=== PATIENT | male | born 1945 | race Caucasian/White ===

== ENCOUNTER 2023-07-24 05:11 | Observation (INO) ==
--- NOTE | 2023-06-12 14:02 | PAT Medication Instructions ---
Medication Instructions Date of Service June 12, 2023 Home Medications Medication Instructions Recorded latanoprost 0.005 % eye drops 1 drp ophthalmic (eye) DAILY 01/07/21 glaucoma #7.5 mL blood sugar diagnostic (OneTouch #100 ea 01/13/22 Verio test strips) lancets 33 gauge (MilagrosTouch Urvashi #100 ea 01/13/22 Lancets) blood-glucose meter #1 ea 02/07/22 pravastatin 40 mg tablet 40 mg PO HS #90 tabs 10/20/22 lisinopril 10 mg tablet 10 mg PO HS #90 tabs 03/21/23 mecobalamin (vitamin B12) 1,000 1,000 mcg PO DAILY #90 tabs 06/08/23 mcg chewable tablet cholecalciferol (vitamin D3) 25 mcg (1,000 unit) tablet (Vitamin D3) 25 mcg PO HS latanoprost 0.005 % eye drops 1 drp ophthalmic (eye) DAILY glaucoma aspirin 81 mg tablet,delayed release 81 mg PO HS pravastatin 40 mg tablet 40 mg PO HS lisinopril 10 mg tablet 10 mg PO HS mecobalamin (vitamin B12) 1,000 mcg chewable tablet 1,000 mcg PO DAILY metoprolol succinate 25 mg tablet,extended release 24 hr 25 mg PO QPM Continue as directed latanoprost 0.005 % eye drops 1 drp ophthalmic (eye) DAILY glaucoma DO NOT take the morning of surgery mecobalamin (vitamin B12) 1,000 mcg chewable tablet 1,000 mcg PO DAILY Take evening before surgery cholecalciferol (vitamin D3) 25 mcg (1,000 unit) tablet (Vitamin D3) 25 mcg PO HS aspirin 81 mg tablet,delayed release 81 mg PO HS (continue as normal unless told otherwise by surgeon) pravastatin 40 mg tablet 40 mg PO HS lisinopril 10 mg tablet 10 mg PO HS metoprolol succinate 25 mg tablet,extended release 24 hr 25 mg PO QPM Other Notes If you have any questions please call us at [phone] or [phone] or [phone] or [phone]
--- NOTE | 2023-06-20 10:46 | Anesthesiology Consultation ---
Date of Service June 20, 2023 Assessment & Plan (1) Encounter for pre-operative examination: Chart Review Chart Review: Acceptable Risk for Surgery (pending cardio clearance ) and Patient seen in Pre Admission Testing - Awaiting cardio clearance 07/07/23 ([place]) - Check BSG AM DOS - Pt is NOT an OPJ candidate Per PAT appt on 06/20/23, no recent illness/disease exposures, illness related symptoms, or recent illness/disease positive tests. Will leave to surgeon's discretion if preop Covid testing needed Patient seen by PCP 06/08/23= seen for medical follow up. Hypertensionwell- controlled on lisinopril. Echocardiogram August 2020 mild/borderline aortic root dilation but no other abnormality. Left hip surgical intervention scheduled 07/24/2023. Preop testing being done 06/20/2023. Given history of nonsustained ventricular tachycardiacardiology clearance. Medically stable to proceed with surgical intervention as planned pending cardiology evaluation. Prediabetesmost recent A1c 6.8. Transition to diabetes mellitus but given patient's advanced age treatment has not required since A1c slightly above 6.5. Peripheral neuropathy. Mild BPH. Glaucoma. Right ankle open peroneal tendon repair 06/23/2020 = done under [facility] with LMA #5. Atraumatic x1 attempt. Teaching & Discussion Pre-Anesthesia Teaching/Discussion Notes: Instructed NPO after midnight before surgery,except medications with 15 cc of water. Medication instructions prov ided according to the PAT guidelines. History Surgery Operation Date: 07/24/23 09:10 Proposed Procedures p Left Anterior Total Hip Arthroplasty - Prasanna Feliciano, DO Height/Weight Height: 5 ft 9 in Weight: 97.7 kg Allergies Allergy/AdvReac Type Severity Reaction Status Date / Time iodine Allergy Mild tingling/itching Verified 06/09/23 11:46 sensation Medications Home Medications Medication Instructions Recorded Confirmed Last Taken cholecalciferol (vitamin D3) 25 25 mcg PO HS 06/03/20 06/09/23 03/14/22 mcg (1,000 unit) tablet (Vitamin D3) latanoprost 0.005 % eye drops 1 drp ophthalmic (eye) DAILY 01/07/21 06/09/23 03/15/22 glaucoma #7.5 mL aspirin 81 mg tablet,delayed 81 mg PO HS 02/23/21 06/09/23 03/14/22 release blood sugar diagnostic (Milestone AV TechnologiesTouch #100 ea 01/13/22 01/31/23 02/23/22 Verio test strips) lancets 33 gauge (OneTouch Delica #100 ea 01/13/22 01/31/23 02/23/22 Lancets) blood-glucose meter #1 ea 02/07/22 01/31/23 02/23/22 pravastatin 40 mg tablet 40 mg PO HS #90 tabs 10/20/22 06/09/23 Unknown lisinopril 10 mg tablet 10 mg PO HS #90 tabs 03/21/23 06/09/23 Unknown mecobalamin (vitamin B12) 1,000 1,000 mcg PO DAILY #90 tabs 06/08/23 06/09/23 Unknown mcg chewable tablet metoprolol succinate 25 mg 25 mg PO QPM 06/09/23 06/09/23 Unknown tablet,extended release 24 hr Past Medical History Medical History Aortic root enlargement Mild aortic root dilation per 2020 ECHO Mildly dilated ascending aorta as well per 2020 ECHO Arthritis BPH (benign prostatic hyperplasia) Glaucoma Follows routinely with eye doctor History of COVID-19 12/2021, pcr [place] (mandatory test [place] go on [place]), "bad cold and fever for 3-4 days" > resolved. HTN (hypertension) Hyperlipidemia Peripheral neuropathy Mild to bilateral feet Prediabetes Hgb A1C 6.8 on 05/26/23 - diabetic range Diet controlled Exercise / Class Metabolic Activity II 4-5 Yardwork/Stairs/Walk up hill (one flight of stairs - no chest pain or SOB ) Past Family History Family History Mother Breast cancer Colorectal cancer Father Myocardial infarction Other COPD (chronic obstructive pulmonary disease) Stroke Denies family history of Ovarian cancer Prostate cancer Past Surgical History Surgical History History of arthroscopy RT/LEFT KNEE History of cataract surgery History of colonoscopy History of tooth extraction S/P foot surgery, right tendon repair 06/2020 Past Anesthesia History No Hx of Anesthesia Complications and No Family Hx of Anesthesia Complications History of PONV No Hx of PONV and No Hx of Motion Sickness Social History Smoking Status: Never smoker Do You Dip or Chew Tobacco: No Hx Alcohol Use: Yes Alcohol type: beer alcohol intake frequency: a few times a week Hx Substance Use: No substance use type: does not use Review of Systems Patient denies chest pain, shortness of breath, dyspnea on exertion, reflux, cough, wheezing, palpitations. No hx of seizures, stroke, RI, apnea/snoring. No hx of blood clots or blood transfusions Physical Exam Vital Signs VITALS BP 124/83 P 81 TEMP 98.1 SP02 95% RESP 16 Constitutional no acute distress ENMT Mouth: no TMJ clicking Thyromental Distance: > or= 3.5 Finger Breadths (4.0) Mallampati Class: III Neck + limited neck extension Respiratory normal respiratory effort; no respiratory distress Auscultation: lungs clear to auscultation bilaterally; no wheezes Cardiovascular Rate/Rhythm: regular rate and regular rhythm Heart Sounds: no murmur Vessels: no carotid bruit Musculoskeletal Spine: no pain with cervical ROM Extremities: extremities normal to inspection Psychiatric Orientation: alert Lab Results Anesthesia Preop Results Results Anesthesia Widget: WBC 5.83 K/ul (4.8-10.8) 06/20/23 Hgb 15.1 g/dl (14.0-18.0) 06/20/23 Hct 43.4 % (42.0-52.0) 06/20/23 Plt 210 K/uL (130-400) 06/20/23 Na 136 mmol/L (136-145) 05/26/23 K 4.0 mmol/L (3.5-5.1) 05/26/23 Cl 103 mmol/L (98-107) 05/26/23 CO2 27 mmol/L (21-32) 05/26/23 BUN 19 mg/dl (6-23) 05/26/23 Creat 0.88 mg/dl (0.6-1.4) 05/26/23 Glucose Level 135 mg/dl (70-99(Fasting)) H 05/26/23 PT 10.6 Seconds (9.0-12.0) 06/20/23 PTT 27.8 Seconds (21.0-31.0) 06/20/23 INR 1.0 (0.9-1.1) 06/20/23 HA1c 6.8 % (4.5-5.6) H 05/26/23 Blood Type O Positive 06/20/23 Antibody Screen NEGATIVE 06/20/23 Testing Laboratory Results 05/26/23= HGB A1C: 6.8 Electrocardiogram Date: 06/08/23 Findings: + NSR @ (87bpm ) Left axis deviation Chest X-Ray Date: 06/20/23 Findings: + NAD Echocardiogram Date: 09/08/20 EF: 55-60% LV Function: normal RWMA: + none Other Findings: + LVH (mild/concentric ) Valvular Disease: + no significant valvular disease Mildly dilated aortic root. Mildly dilated ascending aorta
--- NOTE | 2023-07-20 15:45 | History & Physical Report ---
Date of Service July 20, 2023 Assessment & Plan (1) Hip arthritis: We will proceed with a left anterior total of arthroplasty. Postoperatively he will be started on aspirin for DVT prophylaxis and kept overnight in the hospital for postop medical management. [facility] discharge. History of Present Illness Chief Complaint: Osteoarthritis of the left hip. 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 He recently moved to the area. He has been dealing with chronic increasing left hip and groin pain. 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 He has had an injection of his hip, which gave him complete relief until it is worn off. After failing conservative treatment, he has elected to proceed with a left anterior total of arthroplasty. Allergies Allergy/AdvReac Type Severity Reaction Status Date / Time iodine Allergy Mild tingling/itching Verified 07/07/23 08:39 sensation Home Medications Medication Instructions Recorded Confirmed Type cholecalciferol (vitamin D3) 25 25 mcg PO HS 06/03/20 07/07/23 History mcg (1,000 unit) tablet (Vitamin D3) latanoprost 0.005 % eye drops 1 drp ophthalmic (eye) DAILY 01/07/21 07/07/23 Rx glaucoma #7.5 mL aspirin 81 mg tablet,delayed 81 mg PO HS 02/23/21 07/07/23 History release blood-glucose meter #1 ea 02/07/22 01/31/23 Rx pravastatin 40 mg tablet 40 mg PO HS #90 tabs 10/20/22 07/07/23 Rx lisinopril 10 mg tablet 10 mg PO HS #90 tabs 03/21/23 07/07/23 Rx mecobalamin (vitamin B12) 1,000 1,000 mcg PO DAILY #90 tabs 06/08/23 07/07/23 Rx mcg chewable tablet metoprolol succinate 25 mg 25 mg PO QPM 06/09/23 07/07/23 History tablet,extended release 24 hr blood sugar diagnostic (OneTouch #100 ea 06/21/23 Rx Verio test strips) lancets 33 gauge #100 ea 06/21/23 Rx Past Med/Surg History Medical History Peripheral neuropathy Glaucoma Follows routinely with eye doctor Aortic root enlargement Mild aortic root dilation per 2020 ECHO Mildly dilated ascending aorta as well per 2020 ECHO BPH (benign prostatic hyperplasia) History of COVID-19 12/2021, pcr [place]mand[place] go [place]), "bad cold and fever for 3-4 days" > resolved. Arthritis Prediabetes Hgb A1C 6.8 on 05/26/23 - diabetic range Diet controlled Peripheral neuropathy Mild to bilateral feet Hyperlipidemia HTN (hypertension) Surgical History History of cataract surgery S/P foot surgery, right tendon repair 06/2020 History of arthroscopy RT/LEFT KNEE History of colonoscopy History of tooth extraction Family History Mother Breast cancer Colorectal cancer Father Myocardial infarction Other COPD (chronic obstructive pulmonary disease) Stroke Denies family history of Ovarian cancer Prostate cancer Social History Smoking Status: Never smoker Second Hand Exposure: No; Do You Dip or Chew Tobacco: No; Hx Alcohol Use: Yes Alcohol type: beer Hx Substance Use: No Preferred Language: Korean Communication Ability: Effective Engineering Professor Required: No Beliefs That Will Affect Care: None marital status: Current Living Situation: Spouse current occupational status: retired 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 Physical Exam Physical examination left hip, he has decreased range of motion. He has pain with internal/external rotation. Most of his pain is located in the groin.. Constitutional WD/WN, vitals as above Eyes PERRL, conjunctivae normal, anicteric sclerae ENMT external ear and nose normal, oropharynx normal Neck trachea midline, no thyromegaly Respiratory normal respiratory effort Cardiovascular RRR, no murmur, no edema Gastrointestinal (Abdomen) normal bowel sounds, soft, nontender, no hepatosplenomegaly Psychiatric A+Ox3, euthymic affect Results & Data Results & Data Laboratory Results . Diagnostic Findings X-rays of the left hip show advanced osteoarthritis with joint space narrowing, osteophyte formation, and [id number] articulation. PG Care Time/CCT Total # of Minutes Spent Total Time Spent with Patient: Total time spent is greater than 50% in coordination of care (as documented) at patient's floor/unit and/or counseling patient: Coding Level of Care Code None Diagnoses Hip arthritis M16.10
[2023-07-24] MEDS ORDERED: TRANEXAMIC ACID 1,000 MG **IV Intra-op IV SCH (06:00)
[2023-07-24] MEDS ORDERED: ceFAZolin 2000MG 2,000 MG/15 ML SYR IV SCH (06:00)
[2023-07-24] MEDS ORDERED: FAMOTIDINE 20 MG TAB PO SCH (06:00)
[2023-07-24] MEDS ORDERED: dexAMETHasone 4 MG TAB PO SCH (06:00)
[2023-07-24] MEDS ORDERED: TRANEXAMIC ACID 1,000 MG **IV Pre-op IV SCH (06:00)
[2023-07-24] MEDS ORDERED: LR 60ML/HR IV SCH (06:00)
[2023-07-24] MEDS ORDERED: ACETAMINOPHEN 500 MG TAB PO SCH (06:00)
[2023-07-24] MEDS ORDERED: ORTHO JOINT MIX INFIL SCH (06:00)
[2023-07-24] MEDS ORDERED: LR 500ML BOLUS, THEN 15ML/HR IV SCH (06:00)
[2023-07-24] MEDS ORDERED: GABAPENTIN 300 MG CAP PO SCH (06:00)
[2023-07-24] MEDS ORDERED: BUPIVACAINE 0.5 % 5 MG/1 ML PF 10ML VIAL ONE (06:16)
--- NOTE | 2023-07-24 06:27 | History & Physical Bridge Note ---
Date of Service July 24, 2023 History & Physical Bridge Note I have examined the patient, reviewed the History & Physical and in the interval since the performance of the History & Physical I have noted the following changes of clinical significance: no changes noted
[2023-07-24] MEDS ORDERED: ORTHO JOINT ANESTHETIC ONE (06:34)
[2023-07-24] MEDS ORDERED: fentaNYL citrate PF 100 MCG/2 ML VIAL ONE (06:37)
[2023-07-24] MEDS ORDERED: MIDAZOLAM HCL 1 MG/ML 2ML VIAL ONE (06:37)
[2023-07-24] MEDS ORDERED: ePHEDrine sulfate 50 MG/ML AMP IV PRN (06:41)
[2023-07-24] MEDS ORDERED: fentaNYL citrate PF 100 MCG/2 ML VIAL IV PRN (06:41)
[2023-07-24] MEDS ORDERED: ONDANSETRON INJ 2 MG/ML 2 ML VIAL IV PRN ×2 (06:41→09:53)
[2023-07-24] MEDS ORDERED: ATROPINE SULFATE 0.1 MG/ML 10ML SYR IV PRN (06:41)
[2023-07-24] MEDS ORDERED: ePHEDrine sulfate 50 MG/5 ML SYR ONE (07:26)
[2023-07-24] MEDS ORDERED: GLYCOPYRROLATE 0.2 MG/ML VIAL ONE (07:26)
[2023-07-24] MEDS ORDERED: PHENYLEPHRINE 100MCG/ML 10ML SYR IV ONE (07:26)
--- NOTE | 2023-07-24 08:06 | Operative Report ---
PG Post Operative Report Pre & Post Diagnosis Operation Date: 07/24/23 07:00 Pre-Op Diagnosis: Left Hip Degenerative Joint Disease Post-Op Diagnosis: Left Hip Degenerative Joint Disease I identified the patient and participated in the time-out.: Yes Procedure Operation Date: 07/24/23 07:00 Actual Procedures p Left Anterior Total Hip Arthroplasty, Uncemented(Left) - Prasanna Feliciano DO Surgeon Prasanna Feliciano DO Semiconductor Assembler Prasanna Ruiz PA-C Estimated Blood Loss 200 Findings Consistent with Post-Op Diagnosis Specimens Left humeral head Description of Procedure Implants used I used a ZimmerBiomet total hip arthroplasty system with a size 4 high offset Avenir Complete stem, a 52 mm G7 cup with a 25mm screw, an E1 polyethylene liner, a 36 mm ceramic head with a +0 neck. Wolf arrived at the hospital for the above procedure. He was seen in the preoperative holding area and the operative extremity was identified and signed. He was given a spinal anesthetic, a preoperative antibiotic, and TXA. He was then taken back to the operating room and laid on the table in the supine position. He was given basic sedation. The operative leg was secured to a Puristst leg positioner. The hip was then prepped and draped in sterile fashion. A timeout was done and the patient and the operative extremity was properly identified. An anterior approach was used. Dissection was taken down through the fascia and the tensor muscle belly was retracted laterally and the rectus was retracted medially. The circumflex vessels were identified and ligated. The capsule was then incised and tagged for later repair. The femoral neck was then cut and the femoral head was removed. The acetabulum was exposed. Time was spent doing a complete circumferential labral release. Sequential reaming of the acetabulum up to a size 51 reamer was done. Final reamings were done under fluoroscopy to ensure appropriate version. A Biomet 52 mm G7 cup was then impacted into place. A single 25 mm screw was placed. The E1 polyethylene liner was then snapped into place. Surrounding soft tissues were then injected with 100 cc of an orthopedic pain control cocktail. The proximal femur was then exposed. Sequential broaching up to a size 4 broach was done. Off that broach a size 36 head with a +0 neck was trialed. The hip was reduced and fluoroscopic images showed anatomic alignment of the implants in acceptable length. The broach was removed. The final size 4 high offset Avenir Complete stem was then impacted into place. A ceramic 36 mm head with a +0 neck was then impacted onto the stem and the hip was reduced. Final fluoroscopic images showed anatomic alignment of the hip. The capsule was then closed with #1 Vicryl suture. A dilute betadyne lavage was then done for 3 minutes. The joint was then irrigated with normal saline solution. The fascia was closed with #1 PDS suture. Skin was closed with 2-0 Vicryl, alexa, and a Silverlon dressing. He was then transferred to a hospital bed and taken to the post anesthesia care unit in stable condition. He tolerated the procedure well. Prasanna Ruiz PA-C, was present for the entire procedure. He was critical for patient positioning, prepping, draping, retraction exposure, wound closure and application of sterile dressing. I attest to the content of the Intraoperative Record and any orders documented therein. Any exceptions are noted below.
[2023-07-24] MEDS ORDERED: PROPOFOL IV EMULSION 10 MG/ML 20 ML VIAL IV ONE (08:19)
--- NOTE | 2023-07-24 08:45 | Fluoroscopy Report ---
FL hip LT 1V CLINICAL HISTORY: Left anterior hip replacement. COMPARISON STUDY: None. FLUOROSCOPY TIME: 15 second FLUOROSCOPY IMAGES: 1 Ka,r: 2.1 mGy FINDINGS: There is a left total hip arthroplasty. The hardware appears intact. No fracture or disloca tion. IMPRESSION: Fluoroscopic assistance as above. ACT 112: Negative or not required by law. Electronically signed by: Tashi Lee M.D. 07/24/2023 8:44 AM
--- NOTE | 2023-07-24 09:37 | Anesthesiology Progress Note ---
Date of Service July 24, 2023 Anesthesia Post Procedure Vital Signs Vital Signs: Temp Pulse Pulse Resp BP Pulse Ox O2 Del Method 07/24/23 09:25 98.2 F 78 15 112/72 94 Room Air 07/24/23 09:15 98.2 F 80 15 113/76 93 Room Air 07/24/23 09:05 75 15 114/73 94 Room Air 07/24/23 08:55 77 12 110/70 97 Room Air 07/24/23 08:45 78 16 108/66 98 Oxymask 07/24/23 08:35 78 16 109/72 98 Oxymask 07/24/23 08:27 98.4 F 84 16 101/67 97 Oxymask 07/24/23 05:44 98.2 F 83 18 134/82 94 Room Air O2 Flow Rate 07/24/23 09:25 07/24/23 09:15 07/24/23 09:05 07/24/23 08:55 07/24/23 08:45 3 07/24/23 08:35 5 07/24/23 08:27 7 07/24/23 05:44 Pain Intensity Left Hip: Pain Intensity: 0 Transfer of Care Handoff Completed per policy Notes Mental Status: alert / awake / arousable and participated in evaluation Patient Amnestic to Procedure: Yes Nausea / Vomiting: adequately controlled Pain: adequately controlled Airway Patency, RR, SpO2: stable & adequate BP & HR: stable & adequate Hydration State: stable & adequate Neuraxial Anesthesia: was administered and sensory block is resolving Anesthetic Complications: no major complications apparent and Pt Satisfied with anesthetic care
[2023-07-24] MEDS ORDERED: NALOXONE HCL 0.4 MG/1 ML VIAL/CARP IV PRN (09:53)
[2023-07-24] MEDS ORDERED: MAGNESIUM HYDROXIDE SUSP 30 ML UDC PO PRN (09:53)
[2023-07-24] MEDS ORDERED: METOCLOPRAMIDE HCL INJ 5 MG/ML 2 ML VIAL IV PRN (09:53)
[2023-07-24] MEDS ORDERED: PHARMACY GLYCEMIC MGMT CONSULT PRN (09:53)
[2023-07-24] MEDS ORDERED: HYDROmorphone INJ 0.5 MG/0.5 ML SYR IV PRN (09:53)
[2023-07-24] MEDS ORDERED: bisacodyL 10 MG SUPP PR PRN (09:53)
[2023-07-24] MEDS: SODIUM CHLORIDE 0.9% 1,000 ML IV SCH ×2 (10:06→21:24)
--- NOTE | 2023-07-24 10:12 | XRay Report ---
XR hip 1V LT w pelvis CLINICAL HISTORY: IN PACU - Post Surgical TECHNIQUE: 1 view of the left hip and single frontal view of the pelvis were obtained. Comparison: Comparison is made to left hip radiograph 06/20/2023 FINDINGS: Patient is status post total hip arthroplasty with expected postsurgical changes including soft tissu e swelling and subcutaneous emphysema. Right hip osteoarthritis is seen. IMPRESSION: Expected postoperative appearance status post placement of total hip arthroplasty. ACT 112: Negative or not required by law. Electronically signed by: Saeed Cardenas M.D. 07/24/2023 10:10 AM
--- NOTE | 2023-07-24 10:54 | Pharmacy Report ---
Pharmacy Glycemic Short Note 2 - Date of Service July 24, 2023 - Glycemic Short BSG Results (Last 24 hours): 07/24/23 05:41 POC Glucose 145 H OUTPATIENT ANTIDIABETIC REGIMEN: * No meds - diet controlled * HbA1c: 6.8% (05/26/23) ASSESSMENT: * 77 yo M admitted on 07/24/23 postoperatively following a left total hip arthroplasty. Pharmacy has been consulted to assist with inpatient glycemic management. Patient is prediabetic and diet controlled as an outpatient. * Preop BSG was 145 mg/dL. Postop BSG was 175 mg/dL. * Will give a one time dose of basal insulin (0.15 units/kg) today to cover the 8 mg of PO dexamethasone that patient received prior to surgery. No further steroids ordered. Reassess if further basal insulin needed tomorrow morning. * T2DM diet is ordered and being tolerated. Novolog will be started based on weight/stress of 1-2. PLAN FOR INPATIENT GLYCEMIC CONTROL: * Basal insulin * Lantus 15 units SC x 1 * Bolus insulin * NovoLog per scale ACHS or Q6hrs while NPO * Goal Range: Low 110 mg/dL - High 140 mg/dL * Correction Factor: 30 mg/dL/unit * Nutritional / Prandial insulin per carb ratio of 1 unit per 10 grams CHO consumed
[2023-07-24] MEDS ORDERED: GLUCAGON FOR INJ 1 MG VIAL IM PRN (11:00)
[2023-07-24] MEDS ORDERED: GLUCOSE 40% GEL 15 GM TUBE PO PRN (11:00)
[2023-07-24] MEDS ORDERED: DEXTROSE 50% 50 ML SYRINGE IV PRN (11:00)
[2023-07-24] MEDS ORDERED: CARBOHYDRATES FOR HYPOGLYCEMIA PO PRN (11:00)
[2023-07-24] MEDS ORDERED: GLUCOSE 10 TAB/TUBE PO PRN (11:00)
[2023-07-24] MEDS: MULTIVITAMIN TAB PO SCH (11:10)
[2023-07-24] MEDS: DOCUSATE SODIUM 100 MG CAP PO SCH ×2 (11:10→20:22)
[2023-07-24] MEDS ORDERED: LANTUS PER UNIT CHARGE SC ONE (11:30)
[2023-07-24] MEDS: INSULIN ASPART PER UNIT CHARGE SC SCH ×3 (12:16→21:23)
[2023-07-24] MEDS: KETOROLAC TROMETHAMINE 15 MG/ML VIAL IV SCH ×2 (12:25→17:40)
[2023-07-24] MEDS: ACETAMINOPHEN 500 MG TAB PO SCH ×2 (13:58→21:23)
[2023-07-24] MEDS: ceFAZolin 2000MG 2,000 MG/15 ML SYR IV SCH ×2 (14:02→21:30)
[2023-07-24] MEDS: traMADol HCL 50 MG TABLET PO PRN ×2 (15:20→21:22)
[2023-07-24] MEDS: ASPIRIN 81 MG ECTAB PO SCH (17:40)
[2023-07-24] MEDS ORDERED: PRAVASTATIN SOD 40 MG TAB PO SCH (21:00)
[2023-07-24] MEDS ORDERED: SENNA 8.6 MG TAB PO SCH (21:00)
[2023-07-24] MEDS ORDERED: METOPROLOL SUCC 25MG EXT REL TAB PO SCH (21:00)
[2023-07-24] MEDS ORDERED: lisinopril 10 MG TAB PO SCH (21:00)
[2023-07-25] MEDS: KETOROLAC TROMETHAMINE 15 MG/ML VIAL IV SCH ×2 (00:12→05:39)
[2023-07-25] MEDS: ACETAMINOPHEN 500 MG TAB PO SCH (05:38)
[2023-07-25] MEDS: traMADol HCL 50 MG TABLET PO PRN (05:43)
[2023-07-25] MEDS: DOCUSATE SODIUM 100 MG CAP PO SCH (08:32)
[2023-07-25] MEDS: ASPIRIN 81 MG ECTAB PO SCH (08:32)
[2023-07-25] MEDS: MULTIVITAMIN TAB PO SCH (08:32)
[2023-07-25] MEDS: INSULIN ASPART PER UNIT CHARGE SC SCH (08:36)
--- NOTE | 2023-07-25 08:49 | Orthopedic Progress Note ---
Date of Service July 25, 2023 Assessment & Plan (1) Status post left hip replacement: Overall he is doing quite well today and not having much pain to the left hip. He will be seen by physical therapy today for ambulation and range of motion exercises. He is on aspirin for DVT prophylaxis. He can be discharged home later today. He will follow-up with orthopedics in 2 weeks. Subjective . Wolf was seen today resting comfortably at bedside in no apparent distress. He states that his pain is well-controlled to his left hip. He notes that he was able to ambulate to the restroom. He has no complaints today. Review of Systems All systems reviewed & are unremarkable except as noted in HPI & below. Physical Exam . On physical examination of the left hip, dressings are clean, dry, and intact. His leg is out in full extension. He has active dorsiflexion and plantarflexion of the left ankle. +2 DP and PT pulses. Less than 2-second capillary refill. Normal sensation. Neurovascular intact. Results & Data Results & Data Laboratory Results . Diagnostic Findings . Postoperative x-rays of the left hip show prosthesis to be in anatomical alignment with no evidence of fracture complication or loosening. PG Care Time/CCT Total # of Minutes Spent Total Time Spent with Patient: Total time spent is greater than 50% in coordination of care (as documented) at patient's floor/unit and/or counseling patient: Coding Level of Care Code 06330 Post Operative Follow-Up Diagnoses Status post left hip replacement Z96.642
--- NOTE | 2023-07-25 08:51 | Discharge Summary ---
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 He recently moved to the area. He has been dealing with chronic increasing left hip and groin pain. 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 He has had an injection of his hip, which gave him complete relief until it is worn off. After failing conservative treatment, he has elected to proceed with a left anterior total of arthroplasty. Admission Exam (Per Admitting) Physical examination left hip, he has decreased range of motion. He has pain with internal/external rotation. Most of his pain is located in the groin.. Principal Diagnosis Same as "Discharge Diagnosis" noted below under Discharge Instructions. Discharge Exam . On physical examination of the left hip, dressings are clean, dry, and intact. His leg is out in full extension. He has active dorsiflexion and plantarflexion of the left ankle. +2 DP and PT pulses. Less than 2-second capillary refill. Normal sensation. Neurovascular intact. Discharge Data Procedures Performed Operation Date: 07/24/23 07:00 Actual Procedures p Left Anterior Total Hip Arthroplasty, Uncemented(Left) - Prasanna Feliciano DO Ordered Studies 07/24/23 07:00 FL hip LT 1V Routine Hospital Course (1) Status post left hip replacement: On July 24, 2023 Wolf arrived at [facility] and underwent a left anterior hip replacement without complications. He had a spinal anesthetic. Postoperatively, he was started on aspirin for DVT prophylaxis and transferred to the general orthopedic floor in stable condition. His hospital course was uneventful. On postoperative day #1, his vital signs were stable and his pain was well-controlled. He was able to participate well with physical therapy doing ambulation and range of motion exercises. He was then discharged home in stable condition. He will follow-up with orthopedics in 2 weeks for postoperative care. PG Care Time/CCT Total # of Minutes Spent Total Time Spent with Patient: Total time spent is greater than 50% in coordination of care (as documented) at patient's floor/unit and/or counseling patient: Discharge Plan Discharge Items Patient Disposition: Home - Home Health Services Reason For Visit: POST SURGICAL CARE Discharge Diagnosis: Left hip replacement Activity: Per Instructions section Non-emergency contact: Surgeon Call non-emergency contact if: your wound has increased redness and your wound has increased drainage Follow-up/Referrals: Claudia Cary MD [Primary Care Provider] - Diet: Regular Addtl Attending Provider Instructions: Activity and Therapy Recommendations: * If you are using [facility] then therapy will be provided at your home until they feel you have accomplished all of your goals. * If you are using [facility] then Physical Therapy will be provided until they feel you are ready to start Outpatient Physical Therapy. * If you are not using home therapy then Outpatient Physical Therapy should start about 3-5 days from your day of surgery. Therapy will last about 6-10 weeks * You were shown a series of exercises in the hospital. Do these exercises three times each day including the exercises you were shown in physical therapy. * Get up and walk several times each day.~ For the first four weeks, try not to stand or walk for more than one hour at a time. If you do stand or walk for more than one hour, you will not hurt anything, but your leg will likely swell.~~ * As you feel comfortable, you may change from the walker or crutches to a cane and~then to independent walking. Medications: * Narcotic You will likely be sent home from the hospital with a prescription for the narcotic pain medication that worked best throughout your stay. * Cefadroxil -take the antibiotic twice a day for 10 days to help prevent infection. * Aspirin Most patients will be required to take Aspirin 81mg twice a day for 6 weeks after surgery. This is obtained [id number] and a prescription is not necessary. * Other medications may be prescribed for specific circumstances. If you have any questions, please call the office at . * Resume previous home medications unless otherwise instructed TEDs/Elastic Stockings: The white elastic stockings help limit swelling and prevent blood clots from forming in your legs. The more you wear them, the more they work. Wear them for six weeks. Dressing Care: Leave the Silverlon dressing in place for 7 days. After 7 days you may remove the dressing. If the incision is not draining then you may leave the alexa open to air. If there is a little bit of drainage or if the alexa are getting stuck on your clothing then cover the incision with a dry dressing. The alexa will be removed at your 2 week follow-up appointment. Showering: You may shower with the Silverlon dressing in place. Do not let the shower spray hit the dressing directly. Pat the Silverlon dressing dry. If the dressing becomes wet underneath, then simply remove the dressing. Keep the incision dry until you are 7 days out from the day of surgery. After 7 days you may remove the Silverlon dressing and shower with the alexa exposed. Let soapy water run over the alexa and pat them dry. Do not scrub or soak the incision. Things To Watch For: * Drainage from the incision site that occurs more than one week after your surgery. * Increased redness at the incision site. * Fever above 102 degrees Fahrenheit. * Unusual chest pain or shortness of breath. * Call [facility] at with any of the above problems Follow-Up Visit: Follow-up with Dr. Feliciano's PA (Prasanna Ruiz) 2-3 weeks after your day of surgery. He will remove your alexa and answer any questions. If you have any additional questions or concerns, Dr Feliciano is usually in the office at the same time and will be available An appointment was probably scheduled when you signed-up for surgery in the office. If you have any questions call Office Instructions: More detailed instructions as well as Frequently Asked Questions were provided in a folder by our office when you signed-up for surgery. Please review these instructions when you get home. If you have any further questions or concerns, please feel free to call the office at [phone] Pending Studies at Discharge: No Stand-Alone Forms: My [facility] [employer], Smoking Cessation Medications and DC Order Prescriptions: New tramadol 50 mg Tablet 50 - 100 mg PO Q6 PRN (Reason: pain) Qty: 30 0RF cefadroxil 500 mg capsule 500 mg PO BID 10 Days Qty: 20 0RF Continued pravastatin 40 mg tablet 40 mg PO HS Qty: 90 3RF lisinopril 10 mg tablet 10 mg PO HS Qty: 90 3RF mecobalamin (vitamin B12) 1,000 mcg tablet,chewable 1,000 mcg PO DAILY Qty: 90 3RF (DME) OneTouch Verio test strips Strip See Rx Instructions .Route Qty: 100 3RF Rx Instructions: use to test once daily (DME) lancets 33 gauge misc See Rx Instructions .Route Qty: 100 3RF Rx Instructions: use to test blood sugar once daily (DME) blood-glucose meter Misc See Rx Instructions .Route Qty: 1 0RF Rx Instructions: As directed one touch Verio cholecalciferol (vitamin D3) [Vitamin D3] 25 mcg (1,000 unit) Tablet 25 mcg PO HS metoprolol succinate 25 mg tablet extended release 24 hr 25 mg PO QPM latanoprost [Xalatan] 0.005 % drops 1 drp ophthalmic (eye) DAILY Rx Instructions: Left eye only Changed aspirin 81 mg tablet,delayed release (DR/EC) 81 mg PO BID PRN (Reason: DVT Prophylaxes) 42 Days Qty: 0 0RF Admission Data Admit Date/Time: 07/24/23 08:29 Attending Provider: Prasanna Feliciano Admit Provider: Prasanna Feliciano Primary Care Provider: Claudia Cary V.
== END 2023-07-25 10:56 | disposition home health service (06) ==
LOC: ASU 05:11 → 3E 05:11

== ENCOUNTER 2024-10-09 14:09 | Inpatient (IN) ==
[2024-10-09] MEDS: CEFEPIME 2000MG 2,000 MG/20 ML SYR IV STA (15:24)
--- NOTE | 2024-10-09 15:25 | Emergency Department Note ---
Impression & Plan Weakness, Leukocytosis, Tachycardia, Fever, Hx of prostate biopsy ED Provider Note NAME: KILLIAN MOJICA AGE: 78 SEX: M : 1945 ARRIVES VIA: Ambulance INFORMANT: [Patient][family] ED PROVIDER(S): [Juan C Weldon MD] CHIEF COMPLAINT: Fever HISTORY OF PRESENT ILLNESS: The patient is a 78-year-old male who states that he had a prostate biopsy yesterday by Dr. Sinha. Things seemed fine yesterday. Today, around 6 hours ago, he began to feel chilled and had what sounds like rigors. He was nauseated but did not vomit. He was dizzy and pale and his temperature went over 102. He was going to come to our hospital but, was too weak to stand and the ambulance was summoned. The patient has not a cough or congestion. No rash. No diarrhea or abdominal pain. No urinary complaints currently. The patient did speak with the urology office, he was referred to the ER. PMHx/PSHx/Social Hx: See Below PHYSICAL EXAM: GENERAL: Patient is in no acute distress. HEENT: No acute trauma, normocephalic atraumatic, mucous membranes moist, no nasal congestion. NECK: No stridor, no adenopathy, no meningismus, trachea is midline. LUNGS: Clear to auscultation bilaterally, no wheeze, no rhonchi, breath sounds equal. HEART: Without murmurs gallops or rubs, regular rate and rhythm. ABDOMEN: Soft, nontender, no peritonitis. EXTREMITIES: No cyanosis, full range of motion of all the joints without pain or difficulty. NEUROLOGIC: Oriented x 3, no acute motor or sensory deficits, no focal weakness. SKIN: No jaundice, no diaphoresis. DIFFERENTIAL DIAGNOSIS: Bacteremia or sepsis, dehydration, UTI, prostatitis, viral illness, pneumonia, among others. EMERGENCY DEPARTMENT PROCEDURES: MEDICAL DECISION MAKING: There is a moderate leukocytosis, this certainly could be consistent with infection. There is a normal hemoglobin and platelet count. No coagulopathy. No renal failure or significant electrolyte abnormality. Lactic acid level was not elevated making severe sepsis less likely. No worrisome liver enzyme elevation. Procalcitonin was elevated consistent with potential bacterial infection. Urinalysis was equivocal for infection. Respiratory bio fire was negative. Chest film did not show pneumonia or CHF. On exam, the patient was borderline hypotensive, he was tachycardic. He presented weak with a fever. The patient was given 1 L of IV saline for hydration. He received IV cefepime as antibiotic coverage. The patient's doing well, his blood pressure has improved since the IV fluids. He seems comfortable. His heart rate seems to have improved with the administration of IV fluids. The patient very likely is bacteremic from his recent prostate biopsy. I did discuss the case with on-call urology. Antibiotics, hydration, hospitalization was felt warranted. I spoke with the patient and his family, I spoke with case management, the on- call hospitalist was consulted. Prior/Outside records/notes reviewed: Today's EMS notes describing his presentation and transport to this hospital. ECG per my interpretation: Indication was possible sepsis. The ECG shows a sinus tachycardia with some PVCs. There is some nonspecific ST change. There is a potential old inferior infarct. There is no acute ST elevation. QTc is 441. Continuous Cardiac Monitoring per my interpretation: An order was placed for continuous cardiac monitoring. The monitor shows a rate of 110 with sinus tachycardia. Imaging/x-ray results per my interpretation: Chest x-ray does not show pneumonia or CHF. Chronic Medical/Social conditions affecting care: Advanced age, recent prostate biopsy. Care/Management discussed with: Case management, the on-call hospitalist. Urology on-call-Dr. Camarillo. Level of care consideration(s): After review of the information above and other included data: --I believe the patient requires escalation of care to admission Critical Care Note: I have personally spent 41 minutes of critical care time in the direct management of this patient. This includes bedside care, interpretation of diagnostic studies, and testing, discussion with consultants, patient, and family members, and other required patient management activities. This 41 minutes is in excess of all separately billable procedures. DISPOSITION: Admission Past Med/Surg History Problem List (Updated 10/09/24 @ 23:54 by Juan C Weldon MD) Hx of prostate biopsy (Acute) Fever (Acute) Tachycardia (Acute) Leukocytosis (Acute) Weakness (Acute) Paroxysmal SVT (supraventricular tachycardia) Elevated PSA Status post left hip replacement (~07/2023) Peripheral neuropathy Thoracic ascending aortic aneurysm Mild CAD Peroneal tendonitis Health care maintenance Hypertension Prediabetes BPH (benign prostatic hyperplasia) Actinic keratoses EKG abnormalities Pain of left sacroiliac joint Back pain Spondylolisthesis at L4-L5 level Greater trochanteric pain syndrome Gait disturbance Aortic root enlargement Vitamin B12 deficiency Hyperlipidemia Peripheral neuropathy Mild to bilateral feet Medical History Hip arthritis Glaucoma Follows routinely with eye doctor Aortic root enlargement Mild aortic root dilation per 2020 ECHO Mildly dilated ascending aorta as well per 2020 ECHO History of COVID-19 12/2021, pcr [place] (mandatory test to go on cruise), "bad cold and fever for 3-4 days" > resolved. Arthritis Prediabetes Diet controlled HTN (hypertension) Surgical History History of total left hip replacement History of cataract surgery S/P foot surgery, right History of arthroscopy History of colonoscopy History of tooth extraction Family History Mother Breast cancer Colorectal cancer Father Myocardial infarction Other COPD (chronic obstructive pulmonary disease) Stroke Denies family history of Ovarian cancer Prostate cancer Social History Smoking Status: Never smoker Second Hand Exposure: No; Do You Dip or Chew Tobacco: No; Hx Alcohol Use: Yes Alcohol type: beer and hard liquor Hx Substance Use: No Preferred Language: Monegasque Communication Ability: Effective 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: No Beliefs That Will Affect Care: None marital status: Current Living Situation: Spouse current occupational status: retired 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 [employer] Other Information That Helps Us Care for You: No Feels Safe at Home: Yes Safety Concerns: Feels Safe At This Time Dental Care, Regularly: Yes Physical Activity Frequency: 1-2 Times per Week Physical Activity Frequency Comment: just finished PT and will start again soon due to ankle surgery Seatbelt Use: always Sunscreen Use: Yes Assistive Devices: Glasses and Other Assistive Devices Comment: walking stick Allergies Allergies Allergy/AdvReac Type Severity Reaction Status Date / Time Iodinated Contrast Media Allergy Intermediate tingling/itching Verified 10/09/24 17:27 sensation iodine Allergy Intermediate tingling/itching Verified 10/09/24 17:27 sensation Home Meds Home Medications Medication Instructions Recorded Confirmed cholecalciferol (vitamin D3) 25 25 mcg PO HS 10/14/20 02/19/25 mcg (1,000 unit) tablet (Vitamin D3) latanoprost 0.005 % eye drops 1 drp OPL HS glaucoma 07/24/23 10/09/24 (Xalatan) aspirin 81 mg tablet,delayed 81 mg PO HS DVT Prophylaxes 12/11/23 10/09/24 release metoprolol succinate 25 mg 25 mg PO HS 02/17/24 10/09/24 tablet,extended release 24 hr cephalexin 500 mg capsule 500 mg PO BID 10/09/24 10/09/24 Previous Rx's Medication Instructions Recorded blood-glucose meter #1 ea 02/07/22 mecobalamin (vitamin B12) 1,000 1,000 mcg PO DAILY #90 tabs 06/08/23 mcg chewable tablet lisinopril 10 mg tablet 10 mg PO HS #90 tabs 01/28/24 blood sugar diagnostic (OneTouch #100 ea 03/19/24 Verio test strips) lancets 33 gauge #100 ea 07/15/24 pravastatin 40 mg tablet 40 mg PO HS #90 tabs 10/01/24 Results & Data (ED) Vital Signs Vital Signs - 24 hr 10/09/24 14:35 10/09/24 14:36 10/09/24 14:36 Temperature 37.7 C H Temperature Source Oral Pulse Rate 113 H 113 H 113 H Pulse Rate [Right Finger] Pulse Rate from SpO2 Sensor Pulse Rhythm [Right Finger] Pulse Strength [Right Finger] Respiratory Rate 23 24 Respiratory Effort / Characteristics Non-Labored Spontaneous Respiratory Depth Normal Respiratory Pattern Blood Pressure 103/67 Blood Pressure [Left Arm] Blood Pressure Mean 79 Blood Pressure Mean [Left Arm] Blood Pressure Position [Left Arm] Pulse Oximetry 95 Oxygen Delivery Method Room Air Sepsis Recent Fever Within 48 Hours No Sepsis New/Unexplained Change in Mental Status No Sepsis Action Taken by Nursing No Action Required 10/09/24 14:37 10/09/24 14:45 10/09/24 15:00 Temperature Temperature Source Pulse Rate Pulse Rate [Right Finger] 110 H Pulse Rate from SpO2 Sensor Pulse Rhythm [Right Finger] Regular Pulse Strength [Right Finger] Normal Respiratory Rate 18 Respiratory Effort / Characteristics Non-Labored Respiratory Depth Normal Respiratory Pattern Regular Blood Pressure 103/67 92/61 L Blood Pressure [Left Arm] 112/67 Blood Pressure Mean 74 68 Blood Pressure Mean [Left Arm] 82 Blood Pressure Position [Left Arm] Lying Pulse Oximetry 92 Oxygen Delivery Method Room Air Sepsis Recent Fever Within 48 Hours Sepsis New/Unexplained Change in Mental Status Sepsis Action Taken by Nursing 10/09/24 15:02 10/09/24 15:06 10/09/24 15:15 Temperature Temperature Source Pulse Rate 108 H Pulse Rate [Right Finger] Pulse Rate from SpO2 Sensor 108 H Pulse Rhythm [Right Finger] Pulse Strength [Right Finger] Respiratory Rate 23 Respiratory Effort / Characteristics Respiratory Depth Respiratory Pattern Blood Pressure 97/59 L Blood Pressure [Left Arm] Blood Pressure Mean 69 Blood Pressure Mean [Left Arm] Blood Pressure Position [Left Arm] Pulse Oximetry 93 Oxygen Delivery Method Room Air Sepsis Recent Fever Within 48 Hours Sepsis New/Unexplained Change in Mental Status Sepsis Action Taken by Nursing 10/09/24 15:15 10/09/24 15:15 10/09/24 15:30 Temperature Temperature Source Pulse Rate 107 H 106 H Pulse Rate [Right Finger] Pulse Rate from SpO2 Sensor 107 H 106 H Pulse Rhythm [Right Finger] Pulse Strength [Right Finger] Respiratory Rate 26 H 23 Respiratory Effort / Characteristics Respiratory Depth Respiratory Pattern Blood Pressure 97/59 L Blood Pressure [Left Arm] Blood Pressure Mean 69 Blood Pressure Mean [Left Arm] Blood Pressure Position [Left Arm] Pulse Oximetry 92 92 Oxygen Delivery Method Sepsis Recent Fever Within 48 Hours Sepsis New/Unexplained Change in Mental Status Sepsis Action Taken by Nursing 10/09/24 15:30 10/09/24 16:00 10/09/24 16:00 Temperature Temperature Source Pulse Rate 101 H Pulse Rate [Right Finger] Pulse Rate from SpO2 Sensor Pulse Rhythm [Right Finger] Pulse Strength [Right Finger] Respiratory Rate 19 Respiratory Effort / Characteristics Respiratory Depth Respiratory Pattern Blood Pressure 95/58 L 111/67 Blood Pressure [Left Arm] Blood Pressure Mean 60 77 Blood Pressure Mean [Left Arm] Blood Pressure Position [Left Arm] Pulse Oximetry 81 L Oxygen Delivery Method Sepsis Recent Fever Within 48 Hours Sepsis New/Unexplained Change in Mental Status Sepsis Action Taken by Nursing 10/09/24 16:30 10/09/24 16:30 10/09/24 16:30 Temperature Temperature Source Pulse Rate 103 H Pulse Rate [Right Finger] Pulse Rate from SpO2 Sensor Pulse Rhythm [Right Finger] Pulse Strength [Right Finger] Respiratory Rate 23 Respiratory Effort / Characteristics Respiratory Depth Respiratory Pattern Blood Pressure 112/58 L 112/58 L Blood Pressure [Left Arm] Blood Pressure Mean 71 71 Blood Pressure Mean [Left Arm] Blood Pressure Position [Left Arm] Pulse Oximetry Oxygen Delivery Method Sepsis Recent Fever Within 48 Hours Sepsis New/Unexplained Change in Mental Status Sepsis Action Taken by Jail Medications Current Medication List: was personally reviewed by me Laboratory Data Attestation: I reviewed the patient's lab results. 10/09/24 14:40 10/09/24 14:40 Lab Results 10/09/24 10/09/24 10/09/24 Range/Units 14:28 14:40 15:12 WBC 15.15 H (4.8-10.8) K/ul RBC 4.65 L (4.70-6.10) M/uL Hgb 14.9 (14.0-18.0) g/dl Hct 42.9 (42.0-52.0) % MCV 92.3 (80.0-100.0) fL MCH 32.0 (25.0-34.0) pg MCHC 34.7 (32.0-36.0) g/dL RDW Std Deviation 42.1 (36.4-46.3) fL RDW Coeff of Elías 12.3 (11.5-14.5) % Plt Count 177 (130-400) K/uL MPV 9.7 (9.4-12.4) fL Immature Gran % (Auto) 0.6 % Neut % (Auto) 94.1 % Lymph % (Auto) 1.9 % Alexander % (Auto) 3.2 % Eos % (Auto) 0.1 % Baso % (Auto) 0.1 % Neut # (Auto) 14.26 H (1.40-6.50) K/uL Lymph # (Auto) 0.29 L (1.20-3.40) K/uL Alexander # (Auto) 0.48 (0.11-0.59) K/uL Eos # (Auto) 0.01 (0.00-0.50) K/uL Baso # (Auto) 0.02 (0.00-0.20) K/uL Immature Gran # (Auto) 0.09 (0.01-0.20) K/uL ESR 15 (0-20) mm/hr PT 10.6 (9.0-12.0) Seconds INR 1.0 (0.9-1.1) APTT 24 (21-31) Seconds PTT Ratio 0.9 Sodium 134 L (136-145) mmol/L Potassium 3.8 (3.5-5.1) mmol/L Chloride 103 (98-107) mmol/L Carbon Dioxide 21 (21-32) mmol/L Anion Gap 10 (3-11) BUN 22 (6-23) mg/dl Creatinine 1.08 (0.6-1.4) mg/dl Est Cr Clr Drug Dosing 67.6 ml/min eGFR 71.12 BUN/Creatinine Ratio 20.4 H (10-20) Glucose 194 H (70-99(Fasting)) mg/dl Lactate (0.4-2.0) mmol/L Calcium 9.2 (8.6-10.3) mg/dl Magnesium 1.7 (1.7-2.4) mg/dl Total Bilirubin 1.4 H (0.2-1.0) mg/dl Direct Bilirubin 0.3 H (0-0.2) mg/dl AST 18 (13-39) U/L ALT 21 (7-52) U/L Alkaline Phosphatase 74 (34-104) U/L Troponin I High Sens 14.6 (0-20) pg/ml C-Reactive Protein 1.11 H (0-0.5) mg/dl Total Protein 6.6 (6.0-8.3) gm/dl Albumin 4.3 (3.4-5.0) gm/dl Procalcitonin 12.70 H (0-0.5) ng/ml Urine Color Brown Urine Appearance Turbid A (Clear) Urine pH 5.0 (4.5-7.5) Ur Specific [place] 1.018 (1.000-1.030) Urine Protein 2+ H (Negative) Urine Glucose (UA) Negative (Negative) Urine Ketones Trace H (Negative) Urine Blood 3+ H (Negative) Urine Nitrite Negative (Negative) Urine Bilirubin 1+ H (Negative) Urine Urobilinogen Negative (Negative) Ur Leukocyte Esterase 1+ H (Negative) Urine WBC (Auto) 11-20 H (0-5) /hpf Urine RBC (Auto) >20 H (0-2) /hpf U Hyaline Cast (Auto) 3-5 H (0-2) /lpf U Epithel Cells (Auto) 0-2 (0-2) /hpf Urine Bacteria (Auto) None Seen (None Seen) Adenovirus (PCR) Not Detected (NotDetected) B. pertussis DNA (PCR) Not Detected (NotDetected) B.parapertussis DNA PCR Not Detected (NotDetected) C. pneumoniae DNA (PCR) Not Detected (NotDetected) Coronavirus OC43 (PCR) Not Detected (NotDetected) Coronavirus HKU1 (PCR) Not Detected (NotDetected) Coronavirus 229E (PCR) Not Detected (NotDetected) SARS-CoV-2 (PCR) Not Detected (NotDetected) Coronavirus NL63 (PCR) Not Detected (NotDetected) Human Metapneumovir PCR Not Detected (NotDetected) Influenza Type A (PCR) Not Detected (NotDetected) Influenza Type B (PCR) Not Detected (NotDetected) M. pneumoniae (PCR) Not Detected (NotDetected) Parainfluenza 1 (PCR) Not Detected (NotDetected) Parainfluenza 2 (PCR) Not Detected (NotDetected) Parainfluenza 3 (PCR) Not Detected (NotDetected) Parainfluenza 4 (PCR) Not Detected (NotDetected) RSV (PCR) Not Detected (NotDetected) Entero/Rhino (PCR) Not Detected (NotDetected) 10/09/24 Range/Units 15:54 WBC (4.8-10.8) K/ul RBC (4.70-6.10) M/uL Hgb (14.0-18.0) g/dl Hct (42.0-52.0) % MCV (80.0-100.0) fL MCH (25.0-34.0) pg MCHC (32.0-36.0) g/dL RDW Std Deviation (36.4-46.3) fL RDW Coeff of Elías (11.5-14.5) % Plt Count (130-400) K/uL MPV (9.4-12.4) fL Immature Gran % (Auto) % Neut % (Auto) % Lymph % (Auto) % Alexander % (Auto) % Eos % (Auto) % Baso % (Auto) % Neut # (Auto) (1.40-6.50) K/uL Lymph # (Auto) (1.20-3.40) K/uL Alexander # (Auto) (0.11-0.59) K/uL Eos # (Auto) (0.00-0.50) K/uL Baso # (Auto) (0.00-0.20) K/uL Immature Gran # (Auto) (0.01-0.20) K/uL ESR (0-20) mm/hr PT (9.0-12.0) Seconds INR (0.9-1.1) APTT (21-31) Seconds PTT Ratio Sodium (136-145) mmol/L Potassium (3.5-5.1) mmol/L Chloride (98-107) mmol/L Carbon Dioxide (21-32) mmol/L Anion Gap (3-11) BUN (6-23) mg/dl Creatinine (0.6-1.4) mg/dl Est Cr Clr Drug Dosing ml/min eGFR BUN/Creatinine Ratio (10-20) Glucose (70-99(Fasting)) mg/dl Lactate 1.7 (0.4-2.0) mmol/L Calcium (8.6-10.3) mg/dl Magnesium (1.7-2.4) mg/dl Total Bilirubin (0.2-1.0) mg/dl Direct Bilirubin (0-0.2) mg/dl AST (13-39) U/L ALT (7-52) U/L Alkaline Phosphatase (34-104) U/L Troponin I High Sens (0-20) pg/ml C-Reactive Protein (0-0.5) mg/dl Total Protein (6.0-8.3) gm/dl Albumin (3.4-5.0) gm/dl Procalcitonin (0-0.5) ng/ml Urine Color Urine Appearance (Clear) Urine pH (4.5-7.5) Ur Specific [place] (1.000-1.030) Urine Protein (Negative) Urine Glucose (UA) (Negative) Urine Ketones (Negative) Urine Blood (Negative) Urine Nitrite (Negative) Urine Bilirubin (Negative) Urine Urobilinogen (Negative) Ur Leukocyte Esterase (Negative) Urine WBC (Auto) (0-5) /hpf Urine RBC (Auto) (0-2) /hpf U Hyaline Cast (Auto) (0-2) /lpf U Epithel Cells (Auto) (0-2) /hpf Urine Bacteria (Auto) (None Seen) Adenovirus (PCR) (NotDetected) B. pertussis DNA (PCR) (NotDetected) B.parapertussis DNA PCR (NotDetected) C. pneumoniae DNA (PCR) (NotDetected) Coronavirus OC43 (PCR) (NotDetected) Coronavirus HKU1 (PCR) (NotDetected) Coronavirus 229E (PCR) (NotDetected) SARS-CoV-2 (PCR) (NotDetected) Coronavirus NL63 (PCR) (NotDetected) Human Metapneumovir PCR (NotDetected) Influenza Type A (PCR) (NotDetected) Influenza Type B (PCR) (NotDetected) M. pneumoniae (PCR) (NotDetected) Parainfluenza 1 (PCR) (NotDetected) Parainfluenza 2 (PCR) (NotDetected) Parainfluenza 3 (PCR) (NotDetected) Parainfluenza 4 (PCR) (NotDetected) RSV (PCR) (NotDetected) Entero/Rhino (PCR) (NotDetected) Administered Medications Enoxaparin Sodium (Enoxaparin Inj 40 Mg/0.4 Ml Syr) 40 mg SQ QPM JOSE LUIS Stop: 11/08/24 20:59 Last Admin: 10/09/24 20:22 Dose: 40 mg Documented By: LEESA Ceftriaxone Sodium (Rocephin) 2,000 mg in 50 mls @ 100 mls/hr IV Q24H JOSE LUIS Stop: 10/19/24 19:59 Last Infusion: 10/09/24 21:20 Dose: Infused Documented By: Admin: 10/09/24 20:22 Dose: 100 mls/hr Documented By: LEESA Sodium Chloride (Nss) 1,000 mls @ 999 mls/hr IV .Q1H1M ONE Stop: 10/09/24 23:45 Last Admin: 10/09/24 22:57 Dose: 999 mls/hr Documented By: LEESA Discontinued Medications Sodium Chloride (Nss) 1,000 mls @ 999 mls/hr IV .Q1H1M ONE Stop: 10/09/24 16:21 Last Infusion: 10/09/24 16:33 Dose: Infused Documented By: Admin: 10/09/24 15:30 Dose: 999 mls/hr Documented By: ESTEBAN Cefepime HCl (Maxipime 2000mg) 2,000 mg in 20 mls @ 5 mls/min IV NOW STA; Protocol Stop: 10/09/24 15:24 Last Admin: 10/09/24 15:24 Dose: 5 mls/min Documented By: ESTEBAN Imaging Data Radiologist's Impression: Chest X-Ray 10/09/24 15:02 XR chest 1V portable CLINICAL HISTORY: Sepsis COMPARISON STUDY: 02/17/2024 FINDINGS: Single view portable chest demonstrates no acute cardiopulmonary process. There is no airspace opacity or pleural effusion. The heart and pulmonary vascularity are unremarkable allowing for portable technique and somewhat low lung volumes. A small nodular density is demonstrated over the right midlung zone laterally. Recommend follow-up with elective PA and lateral chest and of reproducible, consider chest CT. IMPRESSION: No acute process. Vague right pulmonary nodule for which additional evaluation is needed. ACT 112: Negative or not required by law. Electronically signed by: Loretta Campos M.D. 10/09/2024 4:06 PM Discharge Plan Visit Data Chief Complaint: Fever Stated Complaint: WEAKNESS, NAUSA ED Provider: Juan C Weldon Discharge Problem: Weakness, Leukocytosis, Tachycardia, Fever, Hx of prostate biopsy Patient Disposition: Admitted As Inpatient Condition: Fair Discharge Instructions Interventions: ED Discharge Assessment Last Done: 10/09/24 18:20 Discharge Problem: Leukocytosis Qualifiers: Leukocytosis type: unspecified Qualified Code(s): D72.829 - Elevated white blood cell count, unspecified Fever Qualifiers: Fever type: unspecified Qualified Code(s): R50.9 - Fever, unspecified
[2024-10-09 15:30] LABS: Hematocrit (blood only) 42.9 % (42.0-52.0); Hemoglobin 14.9 g/dl (14.0-18.0); Mean Corpuscular Hgb Conc 34.7 g/dL (32.0-36.0); Mean Corpuscular Volume 92.3 fL (80.0-100.0); Mean Platelet Volume 9.7 fL (9.4-12.4); Platelet Count 177 K/uL (130-400); RDW Coefficient of Variation 12.3 % (11.5-14.5); RDW Standard Deviation 42.1 fL (36.4-46.3); Red Blood Count 4.65 M/uL (4.70-6.10); White Blood Count 15.15 K/ul (4.8-10.8)
[2024-10-09] MEDS: SODIUM CHLORIDE 0.9% 1,000 ML IV ONE ×2 (15:30→22:57)
[2024-10-09 15:47] LABS: Partial Thromboplastin Ratio 0.9; Partial Thromboplastin Time 24 Seconds (21-31); Prothrombin Time 10.6 Seconds (9.0-12.0)
[2024-10-09 15:50] LABS: Albumin Level 4.3 gm/dl (3.4-5.0); BUN Creatinine Ratio 20.4 (10-20); Bilirubin Direct 0.3 mg/dl (0-0.2); Bilirubin,Total 1.4 mg/dl (0.2-1.0); Calcium 9.2 mg/dl (8.6-10.3); Creatinine Clr Calc Pharmacy 67.6 ml/min; Magnesium 1.7 mg/dl (1.7-2.4); Potassium 3.8 mmol/L (3.5-5.1); Total Protein 6.6 gm/dl (6.0-8.3)
[2024-10-09 15:53] LABS: Appearance Urine Turbid (Clear); Bacteria Urine Automated None Seen (None Seen); Bilirubin Urine 1+ (Negative); Blood Urine 3+ (Negative); Color Urine Brown; Epithelial Cell Urine Auto 0-2 /hpf (0-2); Glucose Urine UA Negative (Negative); Ketones Urine Trace (Negative); Leukocyte Esterase Urine 1+ (Negative); Nitrite Urine Negative (Negative); Protein Urine 2+ (Negative); RBC Urine Automated >20 /hpf (0-2); Specific Gravity Urine 1.018 (1.000-1.030); Urobilinogen Urine Negative (Negative)
[2024-10-09 15:55] LABS: Troponin I High Sensitivity 14.6 pg/ml (0-20)
[2024-10-09 16:04] LABS: Basophils # (auto) 0.02 K/uL (0.00-0.20); Basophils % (auto) 0.1 %; Eosinophils # (auto) 0.01 K/uL (0.00-0.50); Eosinophils % (auto) 0.1 %; Immature Granulocytes # (auto) 0.09 K/uL (0.01-0.20); Immature Granulocytes % (auto) 0.6 %; Lymphocytes # (auto) 0.29 K/uL (1.20-3.40); Lymphocytes % (auto) 1.9 %; Monocytes # (auto) 0.48 K/uL (0.11-0.59); Monocytes % (auto) 3.2 %; Neutrophils # (auto) 14.26 K/uL (1.40-6.50); Neutrophils % (auto) 94.1 %
--- NOTE | 2024-10-09 16:07 | XRay Report ---
XR chest 1V portable CLINICAL HISTORY: Sepsis COMPARISON STUDY: 02/17/2024 FINDINGS: Single view portable chest demonstrates no acute cardiopulmonary process. There is no airsp hung opacity or pleural effusion. The heart and pulmonary vascularity are unremarkable allowing for po rtable technique and somewhat low lung volumes. A small nodular density is demonstrated over the righ t midlung zone laterally. Recommend follow-up with elective PA and lateral chest and of reproducible, consider chest CT. IMPRESSION: No acute process. Vague right pulmonary nodule for which additional evaluation is needed . ACT 112: Negative or not required by law. Electronically signed by: Loretta Campos M.D. 10/09/2024 4:06 PM
--- NOTE | 2024-10-09 16:29 | History & Physical Report ---
Date of Service October 09, 2024 Assessment & Plan (1) Sepsis: Plan: SIRS criteria met with white blood count and tachycardia Suspected source prostatitis with biopsy performed yesterday Empiric antibiotics with IV ceftriaxone Follow-up urine and blood cultures Lactate 1.7, MAP > 65, full fluid bolus not given (2) Acute prostatitis: Plan: As above (3) Abnormal chest x-ray: Plan: Consider follow-up of right pulmonary nodule with PA and lateral chest x-rays as outpatient Plan HTN - continue metoprolol, hold lisinopril VTE prophylaxis - Lovenox 40 mg subcu daily Diet - regular Disposition - admit to med/tele Admission and Anticipated Discharge Date Admission Date: October 09, 2024 History of Present Illness Chief Complaint: Rigors Primary Care Provider: Claudia Cary MD Wolf Marie is a 78 year old male who presents to the ER with rigors. He had a prostate biopsy yesterday and was generally feeling well following this. However this morning around 11 AM he started with chills and shaking, nausea without vomiting and appeared pale. He called to the urology office and recommended going to the ER if his temperature goes above 101. On the second temperature check his temperature was 102 F. He was so weak he was unable to get out of a chair therefore his called for an ambulance to bring him to the ER. He denies any respiratory, other gastrointestinal (other than nausea) or urinary symptoms. No prior multiresistant urinary organisms. He is not immunosuppressed. Allergies Allergy/AdvReac Type Severity Reaction Status Date / Time Iodinated Contrast Media Allergy Intermediate tingling/itching Verified 10/09/24 17:27 sensation iodine Allergy Intermediate tingling/itching Verified 10/09/24 17:27 sensation Home Medications Medication Instructions Recorded Confirmed Type cholecalciferol (vitamin D3) 25 25 mcg PO HS 06/03/20 10/09/24 History mcg (1,000 unit) tablet (Vitamin D3) blood-glucose meter #1 ea 02/07/22 09/24/24 Rx mecobalamin (vitamin B12) 1,000 1,000 mcg PO DAILY #90 tabs 06/08/23 10/09/24 Rx mcg chewable tablet latanoprost 0.005 % eye drops 1 drp OPL HS glaucoma 07/24/23 10/09/24 History (Xalatan) aspirin 81 mg tablet,delayed 81 mg PO HS DVT Prophylaxes 12/11/23 10/09/24 History release lisinopril 10 mg tablet 10 mg PO HS #90 tabs 01/28/24 10/09/24 Rx metoprolol succinate 25 mg 25 mg PO HS 02/17/24 10/09/24 History tablet,extended release 24 hr blood sugar diagnostic (OneTouch #100 ea 03/19/24 09/24/24 Rx Verio test strips) lancets 33 gauge #100 ea 07/15/24 09/24/24 Rx pravastatin 40 mg tablet 40 mg PO HS #90 tabs 10/01/24 10/09/24 Rx cephalexin 500 mg capsule 500 mg PO BID 10/09/24 10/09/24 History Past Med/Surg History Problem List (Updated 10/10/24 @ 00:21 by Josue Aguirre MD) Abnormal chest x-ray Acute prostatitis Sepsis Hx of prostate biopsy (Acute) Fever (Acute) Tachycardia (Acute) Leukocytosis (Acute) Weakness (Acute) Paroxysmal SVT (supraventricular tachycardia) Elevated PSA Status post left hip replacement (~07/2023) Peripheral neuropathy Thoracic ascending aortic aneurysm Mild CAD Peroneal tendonitis Health care maintenance Hypertension Prediabetes BPH (benign prostatic hyperplasia) Actinic keratoses EKG abnormalities Pain of left sacroiliac joint Back pain Spondylolisthesis at L4-L5 level Greater trochanteric pain syndrome Gait disturbance Aortic root enlargement Vitamin B12 deficiency Hyperlipidemia Peripheral neuropathy Mild to bilateral feet Medical History Hip arthritis Glaucoma Follows routinely with eye doctor Aortic root enlargement Mild aortic root dilation per 2020 ECHO Mildly dilated ascending aorta as well per 2020 ECHO History of COVID-19 12/2021, pcr [place] (mandatory test to go on cruise), "bad cold and fever for 3-4 days" > resolved. Arthritis Prediabetes Diet controlled HTN (hypertension) Surgical History History of total left hip replacement History of cataract surgery S/P foot surgery, right History of arthroscopy History of colonoscopy History of tooth extraction Family History Mother Breast cancer Colorectal cancer Father Myocardial infarction Other COPD (chronic obstructive pulmonary disease) Stroke Denies family history of Ovarian cancer Prostate cancer Social History Smoking Status: Never smoker Second Hand Exposure: No; Do You Dip or Chew Tobacco: No; Hx Alcohol Use: Yes Alcohol type: beer and hard liquor Hx Substance Use: No Preferred Language: Luxembourgish Communication Ability: Effective Resident Hall Director Required: No Beliefs That Will Affect Care: None marital status: Current Living Situation: Spouse current occupational status: retired 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 [employer] Other Information That Helps Us Care for You: No Feels Safe at Home: Yes Safety Concerns: Feels Safe At This Time Dental Care, Regularly: Yes Physical Activity Frequency: 1-2 Times per Week Physical Activity Frequency Comment: just finished PT and will start again soon due to ankle surgery Seatbelt Use: always Sunscreen Use: Yes Assistive Devices: Glasses and Other Assistive Devices Comment: walking stick Review of Systems Review of Systems: All systems reviewed & are unremarkable except as noted in HPI & below Physical Exam Constitutional: WD/WN, vitals as above ENMT: external ear and nose normal, oropharynx normal Respiratory: normal respiratory effort, lungs clear to auscultation Cardiovascular: RRR, no murmur, no edema Gastrointestinal (Abdomen): Inspection/Auscultation: + abdomen distended Percussion/Palpation: + abdomen tender (Mild RLQ pain) and abdomen soft; no guarding and abdomen not rigid Musculoskeletal: no cyanosis or clubbing, extremities motor strength 5/5 Skin: no rashes, warm and dry Neurologic: moves all extremities and awake; no focal motor deficits and not confused Psychiatric: A+Ox3, euthymic affect Results & Data Results & Data Vital Signs (Past 12 Hours) Vital Signs Temp Pulse Pulse Resp BP BP Pulse Ox 10/09/24 16:00 101 H 19 81 L 10/09/24 16:00 111/67 10/09/24 15:30 95/58 L 10/09/24 15:30 106 H 23 92 10/09/24 15:15 107 H 26 H 92 10/09/24 15:15 97/59 L 10/09/24 15:15 97/59 L 10/09/24 15:06 108 H 23 93 10/09/24 15:02 02/19/25 15:00 110 H 18 112/67 92 10/09/24 14:45 92/61 L 10/09/24 14:37 103/67 10/09/24 14:36 113 H 24 10/09/24 14:36 113 H 10/09/24 14:35 37.7 C H 113 H 23 103/67 95 O2 Del Method 10/09/24 16:00 10/09/24 16:00 10/09/24 15:30 10/09/24 15:30 10/09/24 15:15 10/09/24 15:15 10/09/24 15:15 10/09/24 15:06 10/09/24 15:02 Room Air 10/09/24 15:00 Room Air 10/09/24 14:45 10/09/24 14:37 10/09/24 14:36 10/09/24 14:36 10/09/24 14:35 Room Air Laboratory Results Abnormal lab results 10/09/24 10/09/24 Range/Units 14:28 14:40 WBC 15.15 H (4.8-10.8) K/ul RBC 4.65 L (4.70-6.10) M/uL Neut # (Auto) 14.26 H (1.40-6.50) K/uL Lymph # (Auto) 0.29 L (1.20-3.40) K/uL Sodium 134 L (136-145) mmol/L BUN/Creatinine Ratio 20.4 H (10-20) Glucose 194 H (70-99(Fasting)) mg/dl Total Bilirubin 1.4 H (0.2-1.0) mg/dl Direct Bilirubin 0.3 H (0-0.2) mg/dl C-Reactive Protein 1.11 H (0-0.5) mg/dl Procalcitonin 12.70 H (0-0.5) ng/ml Urine Appearance Turbid A (Clear) Urine Protein 2+ H (Negative) Urine Ketones Trace H (Negative) Urine Blood 3+ H (Negative) Urine Bilirubin 1+ H (Negative) Ur Leukocyte Esterase 1+ H (Negative) Urine WBC (Auto) 11-20 H (0-5) /hpf Urine RBC (Auto) >20 H (0-2) /hpf U Hyaline Cast (Auto) 3-5 H (0-2) /lpf Diagnostic Findings XR chest 1V portable CLINICAL HISTORY: Sepsis COMPARISON STUDY: 02/17/2024 FINDINGS: Single view portable chest demonstrates no acute cardiopulmonary process. There is no airspace opacity or pleural effusion. The heart and pulmonary vascularity are unremarkable allowing for portable technique and somewhat low lung volumes. A small nodular density is demonstrated over the right midlung zone laterally. Recommend follow-up with elective PA and lateral chest and of reproducible, consider chest CT. IMPRESSION: No acute process. Vague right pulmonary nodule for which additional evaluation is needed. Medications Administered ER medications given: Normal saline 1 L bolus Cefepime 2000 mg IV ECG Rate (beats per minute): 113 Rhythm: sinus tachycardia Findings: + other (Fusion complexes, pulmonary disease pattern) and + left axis deviation Comparison ECG Date: from (February 17, 2024) Change: the following changes noted (Fusion complexes now present) Code Status & VTE Plan Code Status DNR/DNI per patient wishes VTE Prophylaxis Plan VTE Prophylaxis will be ordered: Yes PG Care Time/CCT Total # of Minutes Spent Total Time Spent with Patient: Total time spent is greater than 50% in coordination of care (as documented) at patient's floor/unit and/or counseling patient: Coding Level of Care Code 08331 INT INP/OBS CARE 3/75MIN Diagnoses Sepsis A41.9 Acute prostatitis N41.0 Abnormal chest x-ray R93.89
[2024-10-09 16:35] LABS: Adenovirus PCR Not Detected (NotDetected); Bordetella parapertussis PCR Not Detected (NotDetected); Bordetella pertussis PCR Not Detected (NotDetected); Chlamydia pneumoniae PCR Not Detected (NotDetected); Coronavirus 229E PCR Not Detected (NotDetected); Coronavirus CoV-2 (COVID19)PCR Not Detected (NotDetected); Coronavirus HKU1 PCR Not Detected (NotDetected); Coronavirus NL63 PCR Not Detected (NotDetected); Coronavirus OC43PCR Not Detected (NotDetected); Human Metapneumovirus PCR Not Detected (NotDetected); Influenza A PCR Not Detected (NotDetected); Influenza B PCR Not Detected (NotDetected); Mycoplasma pneumoniae PCR Not Detected (NotDetected); Parainfluenza Virus 1 PCR Not Detected (NotDetected); Parainfluenza Virus 2 PCR Not Detected (NotDetected); Parainfluenza Virus 3 PCR Not Detected (NotDetected); Parainfluenza Virus 4 PCR Not Detected (NotDetected); Respiratory Syncytial VirusPCR Not Detected (NotDetected); Rhinovirus/Enterovirus PCR Not Detected (NotDetected)
[2024-10-09 16:44] LABS: C Reactive Protein 1.11 mg/dl (0-0.5)
[2024-10-09] MEDS: ENOXAPARIN INJ 40 MG/0.4 ML SYR SQ SCH (20:22)
[2024-10-09] MEDS: cefTRIAXone SODIUM 2,000 MG/50 ML BAG IV SCH (20:22)
[2024-10-10 02:14] LABS: A calco-baum cmplx NotReported Not Detected (NotDetected); Bact fragilis Not Reported Not Detected (NotDetected); Blood Culture Id Panel See PCR Comment (NotDetected); C auris Not Reported Not Detected (NotDetected); CTX-M Resistant Gene Not Detected (NotDetected); Calbicans Not Reported Not Detected (NotDetected); Candida glabrata Not Reported Not Detected (NotDetected); Candida krusei Not Reported Not Detected (NotDetected); Cneoformans/gatti Not Reported Not Detected (NotDetected); Cparapsilosis Not Reported Not Detected (NotDetected); E cloacae compx Not Reported Not Detected (NotDetected); Efaecalis Not Reported Not Detected (NotDetected); Efaecium Not Reported Not Detected (NotDetected); Enterobacterales DETECTED (NotDetected); Enterobacterales Not Reported DETECTED (NotDetected); Escherichia coli Not Reported DETECTED (NotDetected); H influenzae Not Reported Not Detected (NotDetected); IMP Resistant Gene Not Detected (NotDetected); K aerogenes Not Reported Not Detected (NotDetected); KPC Resistant Gene Not Detected (NotDetected); Koxytoca Not Reported Not Detected (NotDetected); Kpneumoniae grp Not Reported Not Detected (NotDetected); Lmonocyt Not Reported Not Detected (NotDetected); N meningitidis Not Reported Not Detected (NotDetected); NDM Resistant Gene Not Detected (NotDetected); OXA 48 Like Resistant Gene Not Detected (NotDetected); P aeruginosa Not Reported Not Detected (NotDetected); Proteus spp Not Reported Not Detected (NotDetected); Salmonella spp Not Reported Not Detected (NotDetected); Staph lugdunensis Not Reported Not Detected (NotDetected); Staph spp. Not Reported Not Detected (NotDetected); Staphaureus Not Reported Not Detected (NotDetected); Staphepi Not Reported Not Detected (NotDetected); Stenmaltophilia Not Reported Not Detected (NotDetected); Strep agal(GrpB) Not Reported Not Detected (NotDetected); Strep pneum Not Reported Not Detected (NotDetected); Strep pyog (GrpA) Not Reported Not Detected (NotDetected); Strep spp Not Reported Not Detected (NotDetected); VIM Resistant Gene Not Detected (NotDetected); mcr-1 Colistin Resistant Gene Not Detected (NotDetected)
[2024-10-10] MEDS: ACETAMINOPHEN 325 MG TAB PO PRN (02:30)
[2024-10-10] MEDS: IBUPROFEN 200 MG TAB PO PRN (06:00)
[2024-10-10 07:34] LABS: Hemoglobin 12.7 g/dl (14.0-18.0); Mean Corpuscular Hemoglobin 32.1 pg (25.0-34.0); Mean Corpuscular Hgb Conc 34.3 g/dL (32.0-36.0); Mean Corpuscular Volume 93.4 fL (80.0-100.0); Mean Platelet Volume 9.7 fL (9.4-12.4); Platelet Count 124 K/uL (130-400); RDW Coefficient of Variation 12.5 % (11.5-14.5); RDW Standard Deviation 43.3 fL (36.4-46.3); Red Blood Count 3.96 M/uL (4.70-6.10); White Blood Count 11.34 K/ul (4.8-10.8)
[2024-10-10 07:47] LABS: BUN Creatinine Ratio 20.8 (10-20); Calcium 8.2 mg/dl (8.6-10.3); Creatinine Clr Calc Pharmacy 69.8 ml/min; Potassium 3.9 mmol/L (3.5-5.1)
[2024-10-10 08:00] LABS: Basophils # (auto) 0.03 K/uL (0.00-0.20); Basophils % (auto) 0.3 %; Immature Granulocytes # (auto) 0.09 K/uL (0.01-0.20); Immature Granulocytes % (auto) 0.8 %; Lymphocytes # (auto) 0.34 K/uL (1.20-3.40); Monocytes # (auto) 0.62 K/uL (0.11-0.59); Monocytes % (auto) 5.5 %; Neutrophils # (auto) 10.26 K/uL (1.40-6.50); Neutrophils % (auto) 90.4 %
[2024-10-10] MEDS: ADVANCED PROBIOTIC 625 MG CAPSULE PO SCH (08:06)
[2024-10-10] MEDS: ACETAMINOPHEN 500 MG TAB PO PRN (14:17)
--- NOTE | 2024-10-10 16:11 | Electrocardiogram Report ---
Test Reason : Blood Pressure : */* mmHG Vent. Rate : 113 BPM Atrial Rate : 113 BPM P-R Int : 148 ms QRS Dur : 86 ms QT Int : 322 ms P-R-T Axes : 109 -52 24 degrees QTcB Int : 441 ms Sinus tachycardia with Fusion complexes Left axis deviation Inferior infarct , age undetermined Abnormal ECG When compared with ECG of 17-Feb-2024 20:45, Fusion complexes are now Present Confirmed by Eric Abrams ([id number]) on 10/10/2024 4:11:40 PM Referred By: REFERRED SELF Confirmed By: Eric Abrams
--- NOTE | 2024-10-10 16:17 | Hospitalist Progress Note ---
Date of Service October 10, 2024 Assessment & Plan (1) Sepsis: (2) E coli bacteremia: (3) Abnormal chest x-ray: Plan: Consider Plan 78-year-old man with BPH and significantly elevated PSA who underwent prostate biopsy 10/[address] Sinha, yesterday he presented to the ED with sepsis. Blood cultures have grown E. coli by molecular testing # sepsis due to E. coli bacteremia related to prostate biopsy -this is improving though with some ongoing low grade fevers and mild hypotension, intermittent sinus tachycardia. WBC improved from 15K --> 11 -will give additional IV saline today and broaden antibiotics to cefepime pending sensis. He does not have risk factors for highly resistant gram negative rods -discussed with Dr. Sinha, planning for 2 weeks antibiotics for bacteremia and he will be following up in Urology clinic prior to completion of antibiotics -mild thrombocytopenia Plt normal --> 124 related to sepsis -AM CBC BMP HTN - hold metoprolol, hold lisinopril for mild hypotension mild CAD - continue statin, aspirin held for hematuria related to prostate biopsy generalized weakness related to acute illness - lives with his on one level house and uses a cane, RN reports he is unsteady today, ordered PT/OT eval follow-up of right pulmonary nodule with PA and lateral chest x-ray vs CT chest as outpatient may be able to discharge over the weekend VTE prophylaxis - Lovenox 40 mg subcu daily Admission and Anticipated Discharge Date Admission Date: October 09, 2024 Bella Bloom is feeling better today he does not have any abdominal pain pelvic pain or dysuria, however, he did pass some blood in his urine he is weaker than baseline and needed assistance to the bathroom Physical Exam 2 Physical Exam: PHYSICAL EXAMINATION Last 24h vital signs reviewed, see documentation in flowsheet General: comfortable appearing, no distress, lying in bed HEENT: Normocephalic, atraumatic, pupils round and equal, sclerae anicteric, no conjunctival injection, moist mucus membranes Lungs: Normal respiratory effort. Clear to auscultation bilaterally. No RRW Heart: Regular rate and rhythm, no murmurs. No JVD Abdomen: Soft, nontender, nondistended. Bowel sounds present. Extremities: Warm, dry, well-perfused. No extremity edema. Neuro: Alert and oriented x 4, face symmetric, moves 4 extremities well Psych: Normal affect and behavior Results & Data Results & Data Vital Signs (Past 12 Hours) Vital Signs Temp Pulse Pulse Resp BP Pulse Ox O2 Del Method 10/10/24 15:44 99.0 F 90 18 96/57 L 93 Room Air 10/10/24 14:17 100.1 F H 10/10/24 11:17 98.6 F 100 H 20 111/73 94 Room Air 10/10/24 10:53 105 H 10/10/24 07:33 98.4 F 97 H 20 126/71 94 Room Air Laboratory Results 10/10/24 06:32 10/10/24 06:32 PG Care Time/CCT Total # of Minutes Spent Total Time Spent with Patient: Total time spent is greater than 50% in coordination of care (as documented) at patient's floor/unit and/or counseling patient: Coding Level of Care Code 44590 SUB INP/OBS CARE 3/50MIN Diagnoses Sepsis A41.9 E coli bacteremia R78.81; B96.20 Abnormal chest x-ray R93.89
[2024-10-10] MEDS: CEFEPIME 2000MG 2,000 MG/20 ML SYR IV SCH (17:48)
[2024-10-10] MEDS: SODIUM CHLORIDE 0.9% 1,000 ML IV ONE (17:48)
[2024-10-10] MEDS: LATANOPROST 0.005% OP SOLN 2.5 ML BTL OPL SCH (20:15)
[2024-10-10] MEDS: PRAVASTATIN SOD 40 MG TAB PO SCH (20:15)
[2024-10-10] MEDS ORDERED: METOPROLOL SUCC 25MG EXT REL TAB PO SCH (21:00)
[2024-10-11 06:29] LABS: Hematocrit (blood only) 36.8 % (42.0-52.0); Hemoglobin 12.8 g/dl (14.0-18.0); Mean Corpuscular Hemoglobin 32.8 pg (25.0-34.0); Mean Corpuscular Hgb Conc 34.8 g/dL (32.0-36.0); Mean Corpuscular Volume 94.4 fL (80.0-100.0); Mean Platelet Volume 9.7 fL (9.4-12.4); Platelet Count 104 K/uL (130-400); RDW Coefficient of Variation 12.8 % (11.5-14.5); RDW Standard Deviation 44.3 fL (36.4-46.3); White Blood Count 6.28 K/ul (4.8-10.8)
[2024-10-11 06:55] LABS: Albumin Globulin Ratio 1.4 (0.9-2); Albumin Level 3.4 gm/dl (3.4-5.0); BUN Creatinine Ratio 19.6 (10-20); Bilirubin,Total 0.9 mg/dl (0.2-1.0); Calcium 8.6 mg/dl (8.6-10.3); Creatinine Clr Calc Pharmacy 80.6 ml/min; Globulin 2.5 gm/dl (2.5-4.0); Potassium 3.9 mmol/L (3.5-5.1); Total Protein 5.9 gm/dl (6.0-8.3)
[2024-10-11] MEDS: SODIUM CHLORIDE 0.9% 1,000 ML IV SCH (10:39)
[2024-10-11] MEDS: cefTRIAXone SODIUM 2,000 MG/50 ML BAG IV SCH (13:34)
--- NOTE | 2024-10-11 18:22 | Hospitalist Progress Note ---
Date of Service October 11, 2024 Assessment & Plan (1) Sepsis: (2) E coli bacteremia: (3) Abnormal chest x-ray: Plan: Consider Plan 78-year-old man with BPH and significantly elevated PSA who underwent prostate biopsy 10/[address] Sinha, following day he presented to the ED with sepsis. Blood cultures grew pansensitive E. coli # sepsis due to E. coli bacteremia related to prostate biopsy - he continues to improve but he still has sepsis today with tachycardia and mild hypotension, requiring ongoing/continuous IV saline and will benefit from continued IV antibiotics until sepsis clears - leukocytosis resolved - reviewed sensitivities the E. coli is pansensitive so changed him back to IV ceftriaxone 2 g every 24 hours, he will be able to discharge on oral antibiotics -discussed with Dr. Sinha, planning for 2 weeks antibiotics for bacteremia and he will be following up in Urology clinic prior to completion of antibiotics -mild thrombocytopenia Plt normal --> 104 related to sepsis - continue to monitor Aden CBC BMP HTN - hold metoprolol, hold lisinopril for mild hypotension mild CAD - continue statin, aspirin held for hematuria related to prostate biopsy generalized weakness related to acute illness - lives with his on one level house and uses a cane, was unsteady 10/10 but has improved and PT and OT recommended home discharge follow-up of right pulmonary nodule with PA and lateral chest x-ray vs CT chest as outpatient may be able to discharge tomorrow VTE prophylaxis - Lovenox 40 mg subcu daily Admission and Anticipated Discharge Date Admission Date: October 09, 2024 Subjective Mr. Marie feels really good and wants to go home as soon as possible, he denies any abdominal or urinary pain, he is sitting up in the chair Physical Exam 2 Physical Exam: PHYSICAL EXAMINATION Last 24h vital signs reviewed, see documentation in flowsheet General: sitting up in the chair and looks good HEENT: Normocephalic, atraumatic, pupils round and equal, sclerae anicteric, no conjunctival injection, moist mucus membranes Lungs: Normal respiratory effort. Clear to auscultation bilaterally. No RRW Heart: mildly tachycardic Regular rate and rhythm, no murmurs. No JVD Abdomen: Soft, nontender, nondistended. Bowel sounds present. Extremities: Warm, dry, well-perfused. No extremity edema. Neuro: Alert and oriented x 4, face symmetric, moves 4 extremities well Psych: Normal affect and behavior Results & Data Results & Data Vital Signs (Past 12 Hours) Vital Signs Temp Pulse Pulse Pulse Resp BP Pulse Ox 10/11/24 13:56 89 10/11/24 11:51 98.2 F 93 H 16 109/71 96 10/11/24 07:57 99.2 F 110 H 20 97/59 L 93 10/11/24 07:00 90 O2 Del Method 10/11/24 13:56 10/11/24 11:51 Room Air 10/11/24 07:57 Room Air 10/11/24 07:00 Laboratory Results 10/11/24 05:53 10/11/24 05:53 PG Care Time/CCT Total # of Minutes Spent Total Time Spent with Patient: Total time spent is greater than 50% in coordination of care (as documented) at patient's floor/unit and/or counseling patient: Coding Level of Care Code 27310 SUB INP/OBS CARE 2/35MIN Diagnoses Sepsis A41.9 E coli bacteremia R78.81; B96.20 Abnormal chest x-ray R93.89
[2024-10-12 07:32] LABS: BUN Creatinine Ratio 13.9 (10-20); Calcium 7.9 mg/dl (8.6-10.3); Creatinine Clr Calc Pharmacy 93.9 ml/min; Potassium 3.6 mmol/L (3.5-5.1)
[2024-10-12 07:48] LABS: Hematocrit (blood only) 36.1 % (42.0-52.0); Hemoglobin 12.7 g/dl (14.0-18.0); Mean Corpuscular Hemoglobin 32.2 pg (25.0-34.0); Mean Corpuscular Hgb Conc 35.2 g/dL (32.0-36.0); Mean Corpuscular Volume 91.4 fL (80.0-100.0); Mean Platelet Volume 9.9 fL (9.4-12.4); Platelet Count 91 K/uL (130-400); RDW Coefficient of Variation 12.4 % (11.5-14.5); RDW Standard Deviation 41.8 fL (36.4-46.3); Red Blood Count 3.95 M/uL (4.70-6.10); White Blood Count 5.48 K/ul (4.8-10.8)
[2024-10-12 08:26] VITALS: BP 124/81; PULSE 96; RESP 19; TEMP 98.6; O2SAT 91
--- NOTE | 2024-10-12 19:37 | Discharge Summary ---
Discharge Summary Date of Service October 12, 2024 Principal Dx & Hospital Course #1 = Principal Diagnosis (1) Sepsis: (2) E coli bacteremia: (3) Abnormal chest x-ray: Consider Plan 78-year-old man with BPH and significantly elevated PSA who underwent prostate biopsy 10/[address] Sinha, following day he presented to the ED with sepsis. Blood cultures grew pansensitive E. coli # Postoperative gram-negative sepsis due to prostate biopsy - sepsis due to E. coli bacteremia - treated with IV fluids, IV antibiotics mainly ceftriaxone, sepsis resolved at this time. I think his mild tachycardia is related to not being on his beta- janis which we will resume on discharge - the E. coli is pansensitive - discharged on high-dose cefadroxil to complete 2 weeks course for bacteremia -discussed with Dr. Sinha- he will be following up in Urology clinic for biopsy results biotics can be extended if necessary - thrombocytopenia related to sepsis should resolve within a week or so HTN - has been relatively hypotensive, improved, resume metoprolol at discharge hold lisinopril for 1 week and then resume mild CAD - continue statin, aspirin held for hematuria related to prostate b iopsy - hold for 1 week then resume generalized weakness related to acute illness - lives with his on one level house and uses a cane, was unsteady 10/10 but has improved and PT and OT recommended home discharge possible right pulmonary nodule - follow-up PA and lateral chest x-ray recommended as outpatient - if follow-up x-ray continues to show pulmonary nodule recommend chest CT Notes For Next Care Provider follow-up chest x-ray for pulmonary nodule Medication Changes From Visit cefadroxil x 2 weeks, held aspirin and lisinopril for 1 week Admission HPI Per Admitting Provider Wolf Marie is a 78 year old male who presents to the ER with rigors. He had a prostate biopsy yesterday and was generally feeling well following this. However this morning around 11 AM he started with chills and shaking, nausea without vomiting and appeared pale. He called to the urology office and recommended going to the ER if his temperature goes above 101. On the second temperature check his temperature was 102 F. He was so weak he was unable to get out of a chair therefore his called for an ambulance to bring him to the ER. He denies any respiratory, other gastrointestinal (other than nausea) or urinary symptoms. No prior multiresistant urinary organisms. He is not immunosuppressed. Discharge Exam PHYSICAL EXAMINATION Last 24h vital signs reviewed, see documentation in flowsheet General: sitting up in the chair and looks good exam unchanged 10/12 HEENT: Normocephalic, atraumatic, pupils round and equal, sclerae anicteric, no conjunctival injection, moist mucus membranes Lungs: Normal respiratory effort. Clear to auscultation bilaterally. No RRW Heart: mildly tachycardic Regular rate and rhythm, no murmurs. No JVD Abdomen: Soft, nontender, nondistended. Bowel sounds present. Extremities: Warm, dry, well-perfused. No extremity edema. Neuro: Alert and oriented x 4, face symmetric, moves 4 extremities well Psych: Normal affect and behavior Discharge Plan Discharge Items Patient Disposition: Home - Self-Care Reason For Visit: SEPSIS, PROSTATITIS Discharge Diagnosis: Sepsis due to E. coli bacteremia related to prostate biopsy Condition on Discharge: Good Activity: Resume your previous activity Non-emergency contact: Primary Care Provider and Urologist Call non-emergency contact if: you have any medication questions, your symptoms worsen and you have a fever Follow-up/Referrals: Claudia Cary MD [Primary Care Provider] - Diet: Regular Addtl Attending Provider Instructions: You were treated for a blood stream infection with E. coli bacteria, related to prostate biopsy. This is a known complication of this procedure, fairly rare but does happen from time to time. Continue taking antibiotics for two weeks and follow up with Dr. Sinha. -seek medical attention if you have recurrent fevers, malaise, pain or burning with urination or kidney/flank pain -hold your aspirin for at least a week. Your blood platelets are somewhat low because of the infection but not enough to cause a significant bleeding risk, the blood platelet count should normalize within about a week -hold your lisinopril for a week, but you can resume the metoprolol -its a good idea to take a probiotic for about a month to prevent antibiotic associated diarrhea There was an incidental finding of a possible right sided pulmonary nodule on your chest x-ray. Please follow-up in primary care for a repeat 2-view chest x- ray. If the repeat chest x-ray still shows an abnormality, it can be evaluated with chest CT. Prior chest x-rays have been normal, so hopefully this is nothing to worry about. It was a pleasure taking care of you in the hospital, Basia Qiu MD Pending Studies at Discharge: Yes (prostate biopsy, blood cultures finalize at 5 days) Stand-Alone Forms: My [facility], Smoking Cessation Medications and DC Order Prescriptions: New cefadroxil 1 gram tablet 1,000 mg PO BID Qty: 28 0RF Continued mecobalamin (vitamin B12) 1,000 mcg tablet,chewable 1,000 mcg PO DAILY Qty: 90 3RF (DME) OneTouch Verio test strips Strip See Rx Instructions .Route Qty: 100 3RF Rx Instructions: use to test once daily (DME) lancets 33 gauge misc See Rx Instructions .Route Qty: 100 3RF Rx Instructions: use to test blood sugar once daily pravastatin 40 mg tablet 40 mg PO HS Qty: 90 3RF (DME) blood-glucose meter Misc See Rx Instructions .Route Qty: 1 0RF Rx Instructions: As directed one touch Verio cholecalciferol (vitamin D3) [Vitamin D3] 25 mcg (1,000 unit) Tablet 25 mcg PO HS latanoprost [Xalatan] 0.005 % drops 1 drp OPL HS Rx Instructions: Left eye only metoprolol succinate 25 mg tablet extended release 24 hr 25 mg PO HS Held lisinopril 10 mg tablet 10 mg PO HS Qty: 90 3RF Hold Instructions: Resume on 10/19/24. aspirin 81 mg tablet,delayed release (DR/EC) 81 mg PO HS Hold Instructions: Resume on 10/19/24. Discontinued cephalexin 500 mg capsule 500 mg PO BID Rx Instructions: BEGIN TAKING THIS MED 12 HOURS BEFORE YOUR PROCEDURE - FIRST DOSE 10/07/24, LAST DOSE 10/09/24 IN PM. Discharge Orders: Discharge Order (Routine); Ordered 10/12/24 Ordered By: Basia Mora/Other Patient Handouts: Cefadroxil Oral Tablet Admission Data Admit Date/Time: 10/09/24 16:47 Attending Provider: Basia Qiu Admit Provider: Josue Aguirre Primary Care Provider: Claudia Cary V. Other Providers: Josue Aguirre Other Interventions: Discharge Summary Assessment (RN) Last Done: 10/12/24 10:41 Hospital Stay Data Consultations 10/09/24 16:24 ED Decision to Admit Stat Pending Results Patient Have Any Pending Studies at Discharge: Yes (prostate biopsy, blood cultures finalize at 5 days) Discharge Instructions Given to Patient (Per Discharging Provider) You were treated for a blood stream infection with E. coli bacteria, related to prostate biopsy. This is a known complication of this procedure, fairly rare but does happen from time to time. Continue taking antibiotics for two weeks and follow up with Dr. Sinha. -seek medical attention if you have recurrent fevers, malaise, pain or burning with urination or kidney/flank pain -hold your aspirin for at least a week. Your blood platelets are somewhat low because of the infection but not enough to cause a significant bleeding risk, the blood platelet count should normalize within about a week -hold your lisinopril for a week, but you can resume the metoprolol -its a good idea to take a probiotic for about a month to prevent antibiotic associated diarrhea There was an incidental finding of a possible right sided pulmonary nodule on your chest x-ray. Please follow-up in primary care for a repeat 2-view chest x- ray. If the repeat chest x-ray still shows an abnormality, it can be evaluated with chest CT. Prior chest x-rays have been normal, so hopefully this is nothing to worry about. It was a pleasure taking care of you in the hospital, Basia Qiu MD Total Time Total Time Spent Total Time Spent (In Minutes): I personally spent: 40 minutes today on clinical care activities including: reviewing chart notes and vital signs reviewing labs, microbiology examining and counseling the patient counseling the patient's family writing orders writing prescriptions, discussion with outpatient pharmacy, discharge instructions documentation Coding Level of Care Code 99098 INP/OBS DISCH >30 MIN Diagnoses Sepsis A41.9 E coli bacteremia R78.81; B96.20 Abnormal chest x-ray R93.89
== END 2024-10-12 12:30 | disposition home or self-care (01) | DRG 862 ==
LOC: ED 14:09 → 2N 16:47 → SUATTDRO 16:47 → 2N 18:20